=== PATIENT | male | born 2000 | race Hispanic/Latino ===

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

== ENCOUNTER 2020-04-09 08:11 | Emergency (ER) | payer SELFPAY ==
[2020-04-09 09:04] LABS: Bilirubin Negative (Negative); Blood, Urine Negative (Negative); Clarity Clear (Clear); Glucose, Urine (Dipstick) Normal (Negative); Ketone, Urine Negative (Negative); Leukocyte Negative Leu/uL (Negative); Nitrite Negative (Negative); Protein, Urine (Dipstick) 20 mg/dL (Neg-Trace); Specific Gravity, Urine 1.033 (1.002-1.036); Urobilinogen Normal mg/dL (Less than 2)
[2020-04-11 16:47] LABS: Chlam.trachomatis by PCR,Urine Not Detected (NotDetected)
== END 2020-04-09 10:00 | disposition home or self-care (01) ==
LOC: ERS 08:11 → EEVIPCON 08:11 → ERS 10:00
DX: R30.0 Dysuria (principal)
CPT/HCPCS: 81003; 87491; 87591; 99283

== ENCOUNTER 2020-04-30 10:41 | Emergency (ER) | payer SELFPAY ==
[2020-04-30] MEDS ORDERED: Ibuprofen 800 MG TAB ONE (11:13)
[2020-04-30] MEDS ORDERED: Boostrix 0.5 ML (Tdap) VIAL ONE (11:13)
--- NOTE | 2020-04-30 11:54 | RAD ---
LEFT INDEX FINGER 3 VIEWS: HISTORY: Laceration to finger. FINDINGS: There are no signs of fracture or dislocation. IMPRESSION: Negative left index finger. POS: [facility]
[2020-04-30] MEDS ORDERED: Bacitracin 1 PK ONE (12:27)
== END 2020-04-30 12:42 | disposition home or self-care (01) ==
LOC: ERS 10:41
DX: S61.211A Laceration without foreign body of left index finger without damage to nail, initial encounter (principal); J45.909 Unspecified asthma, uncomplicated; Z87.891 Personal history of nicotine dependence; W26.0XXA Contact with knife, initial encounter; Y93.G3 Activity, cooking and baking; Y99.0 Civilian activity done for income or pay
CPT/HCPCS: 90471; 90715

== ENCOUNTER 2020-07-01 14:19 | Emergency (ER) | payer SELFPAY ==
[2020-07-01] MEDS ORDERED: Lidocaine 1% (PF) 30 ML VIAL ONE (15:28)
[2020-07-01] MEDS ORDERED: HYDROcodone/Acetaminophen 5/325 mg Tablet ONE (15:28)
== END 2020-07-01 17:00 | disposition home or self-care (01) ==
LOC: ERS 14:19
DX: S61.216A Laceration without foreign body of right little finger without damage to nail, initial encounter (principal); S61.214A Laceration without foreign body of right ring finger without damage to nail, initial encounter; S61.210A Laceration without foreign body of right index finger without damage to nail, initial encounter; J45.909 Unspecified asthma, uncomplicated; Z87.891 Personal history of nicotine dependence; W26.0XXA Contact with knife, initial encounter; Y92.009 Unspecified place in unspecified non-institutional (private) residence as the place of occurrence of the external cause
CPT/HCPCS: 99282; J2001

== ENCOUNTER 2022-04-14 20:06 | Emergency (ER) | payer SELFPAY ==
[2022-04-14] MEDS ORDERED: Ondansetron ODT 8 MG TAB ONE (20:57)
[2022-04-14] MEDS ORDERED: Dicyclomine 20 MG TAB ONE (20:57)
[2022-04-14 21:42] LABS: #Lymphocytes 2.2 thou/uL (1.20-3.40); #Monocytes 1.2 thou/uL (0.11-0.59); #Neutrophils 15.8 thou/uL (1.40-6.50); %Basophils 0.2 % (0.0-1.0); %Eosinophils 0.2 % (0.0-10.0); %Lymphocytes 11.6 % (21.0-51.0); %Monocytes 6.1 % (0.0-10.0); %Neutrophils 81.9 % (42.0-75.0); Hemoglobin 16.6 g/dL (14.0-18.0); Mean Corpuscular Hemoglobin 30.1 pg (27.0-31.0); Mean Corpuscular Volume 88.5 fl (78.0-98.0); Mean Platelet Volume 10.3 fL (7.4-10.4); Platelet Count 200 10x3/uL (130-400); RBC Distribution Width 11.7 % (11.5-14.5); White Blood Cell (WBC) Count 19.3 10x3/uL (4.8-10.8)
[2022-04-14 22:00] LABS: ALT (SGPT) 38 U/L (8-55); AST (SGOT) 23 U/L (5-34); Albumin 4.7 g/dL (3.5-5.0); Alkaline Phosphatase 61 U/L (40-110); Anion Gap 11 mmol/L (10-20); BUN (Urea Nitrogen) 10 mg/dL (8.9-20.6); Bilirubin, Total 0.5 mg/dL (0.2-1.2); Calc. Creatinine Clearance 0 mL/min (70-130); Carbon Dioxide 30 mmol/L (22-29); Chloride 101 mmol/L (98-107); Estimated GFR 126; Globulin 3.2 g/dL (2.4-3.5); Glucose 101 mg/dL (70-105); Potassium 3.8 mmol/L (3.5-5.1); Protein, Total 7.9 g/dL (6.0-8.3); Sodium 138 mmol/L (136-145)
[2022-04-14 22:32] LABS: Bilirubin Negative (Negative); Blood, Urine Negative (Negative); Clarity Clear (Clear); Glucose, Urine (Dipstick) Normal (Negative); Ketone, Urine Negative (Negative); Leukocyte Negative Leu/uL (Negative); Nitrite Negative (Negative); Protein, Urine (Dipstick) 50 mg/dL (Neg-Trace); Specific Gravity, Urine 1.024 (1.002-1.036); Urobilinogen Normal mg/dL (Less than 2); pH, Urine 6.5 (5.0-9.0)
[2022-04-14 22:38] LABS: Mucous/LPF Rare LPF (<2+); Squamous Epithelial 0-3 HPF (0-3)
== END 2022-04-15 00:56 | disposition left against medical advice (07) ==
LOC: ERS 20:06
DX: Z53.21 Procedure and treatment not carried out due to patient leaving prior to being seen by health care provider (principal)
CPT/HCPCS: 36415; 80053; 81003; 81015; 85025; 87804; 93005; Q0162

== ENCOUNTER 2023-04-14 08:10 | Emergency (ER) | payer SELFPAY ==
[2023-04-14 09:57] LABS: SARS-CoV-2 NAA Rapid Test Not Detected (NotDetected)
== END 2023-04-14 10:30 | disposition home or self-care (01) ==
LOC: ERS 08:10
DX: J06.9 Acute upper respiratory infection, unspecified (principal); F17.290 Nicotine dependence, other tobacco product, uncomplicated; Z20.822 Contact with and (suspected) exposure to COVID-19
CPT/HCPCS: 99283